=== PATIENT | female | born 2000 | race Two or more races ===

== ENCOUNTER → 2024-11-23 | Outpatient (CLI) | payer MEDICAID, SELFPAY ==
--- NOTE | 2024-11-23 15:15 | XR_ITS ---
Examination: Breast ultrasound complete, bilateral Date and time of exam: November 23, 2024 1543 hours INDICATIONS: Patient states left breast pain one month, family history breast cancer Technique: Real-time grayscale ultrasonographic imaging bilateral breasts, including all 4 quadrants as well as nipple retroareolar and axillary regions. Findings: Sonographic images right breast No cystic or solid mass Sonographic images left breast No cystic or solid mass 24 mm left axillary lymph node IMPRESSION: BI-RADS Category 2: Benign findings Repeat the left breast sonogram in 3 months if left breast pain persists
== END | disposition home or self-care (01) ==
PROVIDERS: PCP Nurse Practitioner; Referring Provider Nurse Practitioner; Visit Provider Nurse Practitioner
DX: N64.4 Mastodynia (principal); Z80.3 Family history of malignant neoplasm of breast
CPT/HCPCS: 76641

== ENCOUNTER 2025-04-23 16:22 | Emergency (ER) | payer MEDICAID, SELFPAY ==
[2025-04-23 16:47] VITALS: BP 131/94; PULSE 88; RESP 18; TEMP 36.9; O2SAT 99
--- NOTE | 2025-04-23 16:56 | EKG_ITS ---
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
--- NOTE | 2025-04-23 16:56 | PD.EDRME ---
Rapid Medical Screening Exam E Arrival date/time: 04/23/25 16:22 24-year-old female with no known medical history presents to the emergency room with a chief complaint of dizziness, lightheadedness, generalized weakness x 2 hours. Patient states she [place] in [place] 102 degree [place] and began to feel weak and fatigued and had a near syncopal episode. I have greeted and performed a focused initial assessment of this patient. A comprehensive ED assessment and evaluation of the patient, analysis of all test results, and completion of the medical decision making process will be conducted by additional ED providers. Chief Complaint: General Adult/Misc Complain Time Seen by Provider: 04/23/25 16:37 Vital signs: Vital Signs Temperature 98.4 F 04/23/25 16:47 Pulse Rate 88 04/23/25 16:47 Respiratory Rate 18 04/23/25 16:47 Blood Pressure 131/94 H 04/23/25 16:47 Pulse Oximetry (%) 99 04/23/25 16:47 Oxygen Delivery Method Room Air 04/23/25 16:47 Vital signs reviewed by provider: Yes
[2025-04-23 17:46] LABS: Basophils # (Auto) 0.1 Thou/mm3 (0.0-0.2); Basophils % (Auto) 1 % (0-2.5); Eosinophils # (Auto) 0.2 Thou/mm3 (0.0-0.5); Eosinophils % (Auto) 2 % (0-10); Hematocrit 38.6 % (36.0-46.0); Hemoglobin 13.4 g/dL (12.0-16.0); Immature Granulocytes Auto 0.04 Thou/mm3 (0.00-0.00); Lymphocytes # (Auto) 3.8 Thou/mm3 (1.0-4.8); Lymphocytes % (Auto) 31 % (10-50); Mean Corpuscular HGB Conc 34.7 g/dl (31.0-37.0); Mean Corpuscular Hemoglobin 31.1 pg (25.0-35.0); Mean Corpuscular Volume 90 fL (80-100); Monocytes # (Auto) 0.8 Thou/mm3 (0.0-0.8); Monocytes % (Auto) 7 % (0-12); Neutrophils # (Auto) 7.3 Thou/mm3 (1.8-7.7); Neutrophils % (Auto) 60 % (37-80); Nucleated Red Blood Cell # 0.00 Thou/mm3 (0.00-0.00); Nucleated Red Blood Cell % 0 /100 WBC (0); Platelet Count 280 Thou/mm3 (140-440); RDW Standard Deviation 40.6 fL (36.4-46.3); Red Blood Count 4.31 Miln/mm3 (4.00-5.20); White Blood Count 12.2 Thou/mm3 (3.6-11.0)
[2025-04-23 17:56] LABS: HCG,Qualitative Serum Negative
[2025-04-23 18:01] LABS: B-Type Natriuretic Peptide < 20 pg/mL (0-100)
[2025-04-23 18:04] LABS: Alanine Aminotransferase 29 U/L (10-49); Albumin, Serum 4.7 gm/dL (3.5-5.0); Albumin/Globulin Ratio 1.7 (1.2-2.2); Alkaline Phosphatase 87 U/L (46-116); Anion Gap 12 (7-16); Aspartate Amino Transferase 28 U/L (0-34); BUN/Creatinine Ratio 10 Ratio (12-20); Bilirubin,Total 0.4 mg/dL (0.3-1.2); Blood Urea Nitrogen 8 mg/dL (9-23); Calcium 10.1 mg/dL (8.3-10.6); Calcium (Corrected) 10.1 mg/dL (8.5-10.1); Carbon Dioxide 23.4 mMol/L (20.0-31.0); Chloride 107 mMol/L (98-107); Creatine Kinase 182 U/L (34-171); Creatinine (Component) 0.8 mg/dL (0.6-1.3); Globulin 2.8 gm/dL (2.3-3.5); Glucose 91 mg/dL (74-106); Osmolality,Calculated 281 (275-295); Potassium 3.8 mMol/L (3.4-5.1); Sodium 142 mMol/L (136-145); Total Protein 7.5 gm/dL (5.7-8.2); Troponin I < 0.020 ng/mL (0.0-0.045); eGFR > 60 See Note
[2025-04-23 18:14] LABS: Collection Type, Urine Clean Catch
[2025-04-23 18:30] LABS: Bacteria,Urine Rare; Bilirubin,Urine Negative (Negative); Blood,Urine Trace (Negative); Clarity,Urine Clear (Clear/Hazy); Color,Urine Yellow (Lt Yel-Yel); Culture Indicated,Urine Not Indicated; Glucose, Urine Negative (Negative); Ketones,Urine Negative (Negative); Leukocyte Esterase,Urine Positive (Negative); Nitrite,Urine Negative (Negative); PH,Urine 6.0 (5.0-7.0); Protein,Urine Trace (Neg - Trace); RBC,Urine 10 /hpf (0-3); Specific Gravity,Urine 1.035 (1.001-1.035); Squamous Epithelial Cell,Urine 7 /hpf (0-5); Urobilinogen,Urine Negative mg/dL (0.0-1.0); WBC,Urine 2 /hpf (0-5)
--- NOTE | 2025-04-23 20:12 | PC.NURSE ---
PT NOT IN ROOM AT THIS TIME, PT CALLED IN THE LOBBY WELL OUTSIDE OF ED LOBBY, NO RESPONSE AT THIS TIME
--- NOTE | 2025-04-23 20:39 | PC.NURSE ---
PT NOT IN ROOM AT THIS TIME, PT CALLED IN THE LOBBY WELL OUTSIDE OF ED LOBBY, NO RESPONSE AT THIS TIME
--- NOTE | 2025-04-23 21:09 | PC.NURSE ---
PT NOT IN ROOM AT THIS TIME, PT CALLED IN THE LOBBY WELL OUTSIDE OF ED LOBBY, NO RESPONSE AT THIS TIME
== END 2025-04-23 21:53 | disposition left against medical advice (07) ==
LOC: SERX 18:36
PROVIDERS: Nurse Practitioner Family; Emergency Provider Podiatrist Foot & Ankle Surgery
DX: R53.1 Weakness (principal); R53.83 Other fatigue; R55 Syncope and collapse; R42 Dizziness and giddiness; I49.8 Other specified cardiac arrhythmias; Z53.29 Procedure and treatment not carried out because of patient's decision for other reasons
CPT/HCPCS: 36415; 80053; 81001; 82550; 83880; 84484; 84703; 85025; 93005; 99283

== ENCOUNTER → 2025-05-22 | Outpatient (CLI) | payer MEDICAID, SELFPAY ==
--- NOTE | 2025-05-22 13:30 | XR_ITS ---
Examination: Breast ultrasound complete, bilateral Date and time of exam: May 22, 2025 1403 hours INDICATIONS: Bilateral breast pain 6 months, family history, mother, breast cancer Technique: Real-time grayscale ultrasonographic imaging bilateral breasts, including all 4 quadrants as well as nipple retroareolar and axillary regions. Findings: Sonographic images right and left breast demonstrated no cystic or solid masses Bilateral axillary lymph nodes without architectural distortion IMPRESSION: BI-RADS Category 2: Benign findings
== END | disposition home or self-care (01) ==
LOC: CDIM 13:23
PROVIDERS: Referring Provider Nurse Practitioner Family; Visit Provider Nurse Practitioner Family
DX: N64.4 Mastodynia (principal); Z80.3 Family history of malignant neoplasm of breast
CPT/HCPCS: 76641